=== PATIENT | female | born 1980 | race Native Hawaiian/Other Pacific Islander ===

== ENCOUNTER 2017-03-10 20:41 | Emergency (ER) | payer OTHER ==
[~2017-03-10] VITALS: Ht 162.6 cm
== END 2017-03-10 21:31 | disposition home or self-care (01) ==
LOC: ED 20:41
DX: M25.562 Pain in left knee (principal); Z98.890 Other specified postprocedural states; W19.XXXA Unspecified fall, initial encounter
CPT/HCPCS: 99281

== ENCOUNTER 2017-09-14 08:41 | Outpatient (CLI) | payer OTHER | END 2017-09-14 22:53 | disposition home or self-care (01) | LOC: NM 08:41 | DX: Z01.810 Encounter for preprocedural cardiovascular examination (principal) | CPT/HCPCS: 93306 ==

== ENCOUNTER 2017-10-12 08:21 | Outpatient (CLI) | payer OTHER ==
[~2017-10-12] VITALS: Ht 162.6 cm; Wt 142.9 kg
== END 2017-10-12 19:32 | disposition home or self-care (01) ==
LOC: NM 08:21
DX: Z01.810 Encounter for preprocedural cardiovascular examination (principal)
CPT/HCPCS: A9500; J2785